=== PATIENT | female | born 1950 | race Native Hawaiian/Other Pacific Islander ===

== ENCOUNTER → 2016-06-14 | Outpatient (CLI) | payer MEDICARE, BC ==
--- NOTE | 2016-06-14 10:44 | CT ---
EXAMINATION TYPE: CT brain wo con DATE OF EXAM: 06/14/2016 9:34 AM COMPARISON: NONE HISTORY: 66-year-old female with memory loss. TECHNIQUE: Examination was done in axial plane without intravenous contrast. Coronal and sagittal reconstructio ns performed. CT DLP: 1036 mGycm Automated exposure control for dose reduction was used. FINDINGS: There is no evidence of acute intracranial hemorrhage, acute ischemic changes, mass, mass-effect, or extra-axial fluid collection. There is no effacement of cerebral sulci or basal subarachnoid cister ns. There is no hydrocephalus. There is no midline shift. Olvera-white matter distinction is preserv ed. Very mild age-related cerebral cortical volume loss. Air-fluid levels within the right greater than left sphenoid sinuses. Mastoid air cells well pneumati zed. Orbits and globes appear intact. IMPRESSION: 1. Very mild age-related cerebral cortical atrophy. No acute intracranial abnormality seen. 2. Air-fluid levels in the sphenoid sinuses; correlate for acute sinusitis.
--- NOTE | 2016-06-14 13:45 | NM ---
EXAMINATION TYPE: NM bone scan whole body DATE OF EXAM: 06/14/2016 1:28 PM COMPARISON: NONE HISTORY: Pain Delayed whole-body scanning was performed following the injection of 27.5 mCi Tc 99m MDP. Images acq uired 3 hours post injection. FINDINGS: Degenerative uptake is seen about the shoulders, sternoclavicular joints, midthoracic spine, lower myla mbar spine, right knee and bilateral ankles. No evidence for intense uptake to suggest fracture or os seous lesion. IMPRESSION: Degenerative uptake as noted.
== END | disposition home or self-care (01) ==
LOC: RADCTMAIN 09:16
PROVIDERS: ATTEND Family Medicine
DX: G31.1 Senile degeneration of brain, not elsewhere classified (principal); R93.7 Abnormal findings on diagnostic imaging of other parts of musculoskeletal system
CPT/HCPCS: 70450; 78306; A9503

== ENCOUNTER → 2016-07-05 | Outpatient (CLI) | payer MEDICARE, BC ==
[2016-07-05 14:10] LABS: EKG EKG PERFORMED
[2016-07-05 14:35] LABS: Basophils # (A) 0.1 k/uL (0-0.2); Basophils % (A) 1 %; CH 27.6; CHCM 31.7; Eosinophils # (A) 0.1 k/uL (0-0.7); Eosinophils % (A) 1 %; HCT 44.7 % (34.0-46.0); HDW 2.34; HGB 14.1 gm/dL (11.4-16.0); Luc # (Auto) 0.12; Luc % (Auto) 2; Lymphocytes # (A) 1.7 k/uL (1.0-4.8); Lymphocytes % (A) 29 %; MCH 27.5 pg (25.0-35.0); MCHC 31.5 g/dL (31.0-37.0); MCV 87.5 fL (80.0-100.0); Mean Platelet Volume 6.5; Monocytes # (A) 0.3 k/uL (0-1.0); Monocytes % (A) 4 %; Neutrophils # (A) 3.6 k/uL (1.3-7.7); Neutrophils % (A) 62 %; RBC 5.11 m/uL (3.80-5.40); RDW 13.8 % (11.5-15.5); WBC 5.8 k/uL (3.8-10.6); WBC (Perox) 6.25
[2016-07-05 14:46] LABS: Anion Gap 9 mmol/L; Carbon Dioxide 32 mmol/L (22-30); Chloride 102 mmol/L (98-107); Potassium 4.5 mmol/L (3.5-5.1); Sodium 143 mmol/L (137-145)
== END | disposition home or self-care (01) ==
LOC: LABPAT 13:59
PROVIDERS: ATTEND Orthopaedic Surgery
DX: Z01.810 Encounter for preprocedural cardiovascular examination (principal)
CPT/HCPCS: 80051; 85025; 93005

== ENCOUNTER 2016-07-10 09:19 | Day surgery (SDC) | payer MEDICARE, BC ==
[2016-07-08 12:46] VITALS: BMI 30.1
--- NOTE | 2016-07-09 14:02 | HP ---
DATE OF ADMISSION: 07/10/2016 Bishop Shetty is a 66-year-old patient seen with progressive left knee pain. After having treatment options discussed, she elected to proceed with left knee arthroscopy. Consent regarding the procedure was obtained. Her past medical history is hypertension, asthma. PAST SURGICAL HISTORY: Herniorrhaphy. Her daily medications are: 1. Advil. 2. Ibuprofen. 3. Losartan. 4. Omeprazole. Allergies are none. SOCIAL HISTORY: Patient denies tobacco use. Physical evaluation of the left knee, her range of motion is 0 to 125 degrees. There is tenderness along the medial joint line. Positive medial Laura's. Ligaments are stable. Hip rotation is without pain. Distal neurovascular exam is intact. Left knee radiographs revealed mild to moderate osteoarthritic changes. An MRI of the left knee revealed an increased signal within the medial meniscus as well as mild osteoarthritis. IMPRESSION: Internal derangement of the left knee with medial meniscal tear. PLAN: Left knee arthroscopy with partial meniscectomy and debridement.
[~2016-07-10 09:19] MED LIST: LACTATED RINGERS 1,000 ML IV SCH; ceFAZolin 2 GM in SODIUM CHLORIDE 0.9% 100 ML IVPB ONE
[2016-07-10] MEDS ORDERED: LIDOCAINE 1% 20 ML VIAL (10MG/ML) FOR IV START INTRADERMA ONE (10:32)
[2016-07-10] MEDS: ONDANSETRON 4 MG/2 ML VIAL IVP ONE ×2 (10:44→16:24)
[2016-07-10] MEDS ORDERED: DEXAMETHASONE SOD PHOS (MDV) 100 MG/10 ML VIAL IV ONE (10:45)
[2016-07-10] MEDS ORDERED: LIDOCAINE 1% INJ 10MG/ML (20 ML MDV) ONE (11:03)
[2016-07-10] MEDS ORDERED: fentaNYL (PF) 50 MCG/ML 2 ML AMP ONE (11:03)
[2016-07-10] MEDS ORDERED: MIDAZOLAM 2 MG/2 ML VIAL ONE (11:03)
[2016-07-10] MEDS ORDERED: PROPOFOL 10 MG/ML 20 ML VIAL IV ONE (11:03)
[2016-07-10] MEDS ORDERED: BUPIVACAIN-EPI 0.25%-1:200,000 30 ML VIAL INTRAARTIC ONE ×2 (11:21→11:42)
[2016-07-10 11:59] VITALS: TEMP 97.1
--- NOTE | 2016-07-10 11:59 | P.OP ---
Date of Procedure: 07/10/16 Preoperative Diagnosis: Internal derangement left knee Postoperative Diagnosis: 1. Tear medial and lateral meniscus left knee 2. Grade 2 chondromalacia medial femoral condyle left knee 3. 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 Reactive synovitis medial and suprapatellar compartments left knee Procedure(s) Performed: 1. Arthroscopic partial medial and lateral meniscectomy left knee 2. Arthroscopic chondroplasty medial femoral condyle left knee 3. Arthroscopic chondroplasty femoral sulcus left knee 4. Arthroscopic partial synovectomy medial and suprapatellar compartments left knee Anesthesia: DANNAA, local Surgeon: Karthik Nance Estimated Blood Loss (ml): 10 Pathology: none sent Condition: stable Disposition: PACU Indications for Procedure: 66-year-old patient seen with progressive left knee pain. After having treatment options discussed, she elected to proceed with left knee arthroscopy. Operative Findings: See description of procedure Description of Procedure: Patient was taken to the operative suite. Patient underwent a general anesthetic by the department of anesthesia. Patient was given preoperative antibiotics. The left lower extremity was placed in a well-padded arthroscopic leg holguin. The left leg was prepped and draped in the normal sterile orthopedic fashion. A lateral parapatellar and suprapatellar incision was made. Trochars were inserted. Arthroscopy was initiated. Suprapatellar pouch revealed thick reactive synovitis. The patellofemoral joint appeared to articulate congruently. There was grade 2-3 chondromalacia changes of the femoral sulcus with some osteochondral tears present. Grade 1 chondral malacia changes of the patella.. The scope was guided into the medial gutter. No loose bodies or plica were identified. The scope was then guided into the medial compartment. A medial parapatellar incision was made. Trocar inserted followed by probe. There was a tear involving the posterior horn of the medial meniscus. There were grade 2 chondral moist changes the medial femoral condyle with some osteochondral tears present. There was reactive synovitis anteriorly. A partial medial meniscectomy was performed on a stable tissue. I performed a chondroplasty of the medial femoral condyle and partial synovectomy. The residual meniscus was probed and found to be stable. The residual osteochondral surface was stable. Scope and probe were then guided into the intercondylar notch. Cruciates were identified, probed and found to be stable. The scope and probe were then guided into lateral compartment. There was some superficial tearing of the mid body lateral meniscus. Grade 1 chondral malacia changes of the tibial plateau. No reactive synovitis, no loose bodies. A partial lateral meniscectomy performed down to stable tissue. The residual meniscus was probed and found to be stable. The scope was in guided back into the suprapatellar compartment. A motorized shaver was introduced into the suprapatellar compartment. I debrided piecemeal fragments of meniscus that I encountered. A chondroplasty of the femoral sulcus was performed down to stable osteochondral tissue. A partial synovectomy was performed. Shaver was removed. Instruments were now removed from the joint. The joint was infiltrated with .25% Marcaine. Steri-Strips were applied to the portal sites. Sterile dressings were applied. The patient was placed into a DEANNE hose. No tourniquet was utilized. The patient was awakened, transferred to a bed and taken to recovery stable satisfactory condition.
[2016-07-10] MEDS: HYDROmorphone 1 MG/ML 1 ML SYRINGE IVP ONE ×2 (12:00→12:12)
[2016-07-10] MEDS ORDERED: KETOROLAC 30 MG/ML 1 ML VIAL IVP ONE (12:12)
[2016-07-10] MEDS: MEPERIDINE 50 MG/ML SYRINGE IVP ONE ×2 (12:18→12:26)
[2016-07-10 16:28] VITALS: BP 145/95; PULSE 99
[2016-07-10 17:21] VITALS: RESP 18
== END 2016-07-10 17:22 | disposition home or self-care (01) ==
LOC: OR 09:19
PROVIDERS: ATTEND Orthopaedic Surgery
DX: S83.242A Other tear of medial meniscus, current injury, left knee, initial encounter (principal); S83.282A Other tear of lateral meniscus, current injury, left knee, initial encounter; X58.XXXA Exposure to other specified factors, initial encounter; M94.262 Chondromalacia, left knee; M65.862 Other synovitis and tenosynovitis, left lower leg; M17.12 Unilateral primary osteoarthritis, left knee; I10 Essential (primary) hypertension; J45.909 Unspecified asthma, uncomplicated; K21.9 Gastro-esophageal reflux disease without esophagitis; Z79.1 Long term (current) use of non-steroidal anti-inflammatories (NSAID); Z79.899 Other long term (current) drug therapy
CPT/HCPCS: 29880; J2250; J2175; J0690; J2405; J2001; J3010; J1885; J1170; J1100; J2704

== ENCOUNTER → 2017-11-27 | Outpatient (CLI) | payer MEDICARE, BC ==
[2017-11-27 10:58] LABS: Blood Urea Nitrogen 9 mg/dL (7-17)
--- NOTE | 2017-11-27 12:26 | CT ---
EXAMINATION TYPE: CT chest wo/w con DATE OF EXAM: 11/27/2017 COMPARISON: 03/13/2015 HISTORY: 67-year-old female Osteoarthritis and Lung nodule TECHNIQUE: Contiguous axial scanning of the chest before and after the administration of 100 ml mL of Isovue 300. Coronal/sagittal reconstructions performed. CT DLP: 954mGycm. Automatic exposure control utilized for a dose reduction. FINDINGS: Heart normal size without pericardial effusion. Aorta normal caliber with conventional arch vessel branching anatomy. No thoracic lymphadenopathy. Tiny 3 mm subpleural pulmonary nodule lateral right mid lung axial image 22 is stable. A stable 3 mm subpleural nodule on the right just below axial image 26, stable. Minimal nodularity along the major fissure, axial image 26 and 28, stable. 3 mm subpleural nodularity posterior right lower lobe axial image 36, stable. 6 mm an adjacent 4 mm pulmonary nodules left midlung axial image 29 and 33, stable. 4 mm anterior left upper lobe pulmonary nodule axial image 26, stable. No new or enlarging pulmonary nodule seen. No consolidation or pleural effusion. Tiny hiatal hernia. Partially visualized mixed solid cystic lesion lateral left kidney probably an A ML as seen in 2015. Bones: Endplate spondylosis within the thoracic spine. Stable sclerotic focus, likely bone island T5 vertebra. IMPRESSION: 1. Scattered pulmonary nodules measuring up to 6 mm unchanged from 2015 compatible with a benign etio logy. No suspicious pulmonary nodules. 2. 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
--- NOTE | 2017-11-27 12:54 | BD ---
EXAMINATION TYPE: Axial Bone Density DATE OF EXAM: 11/27/2017 COMPARISON: NONE CLINICAL HISTORY: 67 YR OLD FEMALE....ICD-10 CODE: M81.0 OSTEOPOROSIS Height: 61 Weight: 155 FRAX RISK QUESTIONS: History of Fracture in Adulthood: YES Secondary Osteoporosis: YES 3. Menopause before 45: YES AT AGE 40 RISK FACTORS HISTORY OF: History of Wrist Fracture: LT WRIST When: AT AGE 57 Family History of Osteoporosis: UNKNOWN Active: YES Diet low in dairy products/other sources of calcium: CHEESE ONLY, SO MAYBE A BIT LOW Postmenopausal woman: AT AGE 40 Take estrogen and/or progesterone medications: IN PAST FOR ABOUT 3-4 YRS MEDICATIONS: Osteoporosis Medications: GENERIC FOSAMAX How Lon+ YRS Additional Medications: BP MEDS, STATINS FOR CHOLESTEROL, REFLUX MEDS, STOMACH MEDS, CENTRUM FOR ADUL TS Additional History: GASTRITIS, HYPERTENSION, ARTHRITIS EXAM MEASUREMENTS: Bone mineral densitometry was performed using the [employer] System. Bone mineral density as measured about the Lumbar spine is: ----- L1-L4(G/cm2): 1.205 T Score Values are as follows: ----- L1: -0.9 ----- L2: 0.5 ----- L3: 0.6 ----- L4: 0.2 ----- L1-L4: 0.2 Bone mineral density NEW TO [facility] Bone mineral density about the R hip (g/cm2): 0.959 Bone mineral density about the L hip (g/cm2): 0.892 T Score values are as follows: -----R Neck: -1.4 -----L Neck: -2.1 -----R Total: -0.4 -----L Total: -0.9 Bone mineral density NEW TO [facility] FRAX%s: THERE IS A 15.1% CHANCE OF A MAJOR OSTEOPOROTIC FX AND A 4.1% FOR HIP FX....PROBABILITY OF FX IN 10 YRS TIME IMPRESSION: No evidence for osteoporosis or osteopenia. NOTE: T-SCORE=SD OF THE YOUNG ADULT MEAN.
== END | disposition home or self-care (01) ==
LOC: RADBDWWP 10:07
PROVIDERS: ATTEND Family Medicine
DX: R91.8 Other nonspecific abnormal finding of lung field (principal); K44.9 Diaphragmatic hernia without obstruction or gangrene; M19.90 Unspecified osteoarthritis, unspecified site
CPT/HCPCS: 82565; 84520; 77080; 71270; 36415; Q9967

== ENCOUNTER → 2018-03-02 | Outpatient (CLI) | payer MEDICARE, BC ==
--- NOTE | 2018-03-05 09:29 | MM ---
Reason for exam: screening (asymptomatic). Last mammogram was performed 2 years and 9 months ago. History: Patient is postmenopausal. Physical Findings: A clinical breast exam by your physician is recommended on an annual basis and results should be correlated with mammographic findings. MG 3D Screening Mammo W/Cad Bilateral CC and MLO view(s) were taken. Prior study comparison: June 06, 2015, mammogram, performed at [facility]. May 16, 2014, mammogram, performed at [facility]. The breast tissue is heterogeneously dense. This may lower the sensitivity of mammography. No significant changes when compared with prior studies. ASSESSMENT: Benign, BI-RAD 2 RECOMMENDATION: Routine screening mammogram of both breasts in 1 year.
== END | disposition home or self-care (01) ==
LOC: RADMAMWWP 10:06
PROVIDERS: ATTEND Family Medicine
DX: Z12.31 Encounter for screening mammogram for malignant neoplasm of breast (principal)
CPT/HCPCS: 77063; 77067

== ENCOUNTER 2018-06-12 21:53 | Emergency (ER) | payer MEDICARE, BC ==
[2018-06-12 22:13] VITALS: RESP 18; TEMP 98.2
[2018-06-12 22:36] LABS: Basophils # (A) 0.1 k/uL (0-0.2); Basophils % (A) 1 %; Eosinophils # (A) 0.2 k/uL (0-0.7); Eosinophils % (A) 2 %; HCT 38.6 % (34.0-46.0); HGB 12.6 gm/dL (11.4-16.0); Lymphocytes # (A) 2.7 k/uL (1.0-4.8); Lymphocytes % (A) 35 %; MCH 27.8 pg (25.0-35.0); MCHC 32.7 g/dL (31.0-37.0); Mean Platelet Volume 7.2; Monocytes # (A) 0.4 k/uL (0-1.0); Monocytes % (A) 6 %; Neutrophils # (A) 4.3 k/uL (1.3-7.7); Neutrophils % (A) 55 %; Platelet Count 369 k/uL (150-450); RBC 4.54 m/uL (3.80-5.40); RDW 13.8 % (11.5-15.5); WBC 7.8 k/uL (3.8-10.6)
[2018-06-12 22:46] LABS: ALT 21 U/L (9-52); AST 20 U/L (14-36); Alkaline Phosphatase 64 U/L (38-126); Anion Gap 7 mmol/L; Blood Urea Nitrogen 18 mg/dL (7-17); Calcium 9.1 mg/dL (8.4-10.2); Carbon Dioxide 29 mmol/L (22-30); Chloride 103 mmol/L (98-107); Glucose 125 mg/dL (74-99); Magnesium 1.9 mg/dL (1.6-2.3); Potassium 3.8 mmol/L (3.5-5.1); Sodium 139 mmol/L (137-145); Total Bilirubin 0.4 mg/dL (0.2-1.3); Total Protein 6.6 g/dL (6.3-8.2)
[2018-06-12 22:48] LABS: Creatine Kinase 35 U/L (30-135)
--- NOTE | 2018-06-12 22:49 | ED ---
Chest Pain HPI - General Chief Complaint: Recheck/Abnormal Lab/Rx Stated Complaint: Pain in upper back, arm, and through fingers Time Seen by Provider: 06/12/18 22:17 Source: patient Mode of arrival: ambulatory Limitations: no limitations - History of Present Illness Initial Comments: This patient is a 68 year old woman who presents with the complaint of Having pain to the posterior aspect of the left shoulder. The patient states that it started 3 days ago now. The pain has been constant, is an aching quality and has been moderately severe. She became concerned because today there was some numbness down the left arm. The patient does note she has some long-standing symptoms like this down the right arm, and she states that her physician Dr. Yanez is going to have her scheduled for an MRI. Patient has not noted anything that worsens or relieves the pain. She has tried taking OTC meds without really much difference. She has not had associated symptoms. Nursing notes mentioned shortness of breath, when I questioned about this she states she has a long-standing (months) phenomenon that when she is lying down trying to go to bed, she sometimes gets a feeling like she cannot take full deep breath but that this does pass, and the symptoms does not have any correlation with the pain she is experiencing for the past 3 days. She is not awakened from sleep by this phenomenon. MD Complaint: chest pain Onset/Timin -: days(s) Onset: during rest Pain Location: other Pain Radiation: LUE Severity: moderate Quality: aching Consistency: constant Improves With: nothing Worsens With: nothing Treatments Prior to Arrival: other (NSAID) - Related Data Home Medications Medication Instructions Recorded Confirmed Acetaminophen [Tylenol Arthritis] 650 mg PO DIRECTED PRN 07/08/16 06/12/18 Alendronate Sodium 70 mg PO TH 07/08/16 06/12/18 Eye Lubricant Combination No.1 1 applic BOTH EYES DIRECTED PRN 07/08/1606/12 [Freshkote] Ibuprofen [Advil] 200 mg PO Q8HR PRN 07/08/16 06/12/18 Losartan/Hydrochlorothiazide 1 tab PO DAILY 07/08/16 06/12/18 [Losartan-Hctz 50-12.5 mg Tab] Fluticasone Nasal [place] [Flonase 1 spray EA NOSTRIL DAILY 06/12/18 06/12/18 Nasal [place]] Omeprazole 20 mg PO DAILY 06/12/18 06/12/18 Previous Rx's Medication Instructions Recorded Naproxen Sodium [Anaprox] 275 mg PO BID #20 tablet 06/13/18 Allergies Allergy/AdvReac Type Severity Reaction Status Date / Time No Known Allergies Allergy Verified 06/12/18 22:45 Review of Systems ROS Statement: Those systems with pertinent positive or pertinent negative responses have been documented in the HPI. ROS Other: All systems not noted in ROS Statement are negative. Constitutional: Denies: fever, chills Respiratory: Denies: cough, dyspnea Cardiovascular: Reports: as per HPI, chest pain. Denies: palpitations, dyspnea on exertion, orthopnea, edema, syncope Gastrointestinal: Denies: abdominal pain, nausea, vomiting, melena, hematochezia Genitourinary: Denies: dysuria, hematuria Musculoskeletal: Denies: back pain Skin: Denies: rash Neurological: Denies: headache, weakness, numbness Hematological/Lymphatic: Denies: easy bleeding EKG Findings - EKG Results: EKG: interpreted by DIONNE RUIZ, sinus rhythm, normal axis, normal QRS, normal ST/ T, no acute changes Past Medical History Past Medical History: Asthma, Eye Disorder, GERD/Reflux, Hypertension, Musculoskeletal Disorder Additional Past Medical History / Comment(s): POSS SL ASTHMA. DRY EYES. LT KNEE INJURY. VARICOSE VEINS. EDEMA LOWER LEGS. History of Any Multi-Drug Resistant Organisms: None Reported Past Surgical History: Hernia Repair Additional Past Surgical History / Comment(s): VARICOSE VEIN SURG. HEMORRHOIDECTOMY. Past Anesthesia/Blood Transfusion Reactions: Family History of Problems w/ Anesthesia, Motion Sickness Additional Past Anesthesia/Blood Transfusion Reaction / Comment(s): SISTER HAS PONV. Past Psychological History: No Psychological Hx Reported Smoking Status: Never smoker Past Alcohol Use History: Rare Past Drug Use History: None Reported - Past Family History Brother(s) Family Medical History: Cancer Mother Family Medical History: Deep Vein Thrombosis (DVT) General Exam Limitations: no limitations General appearance: alert, in no apparent distress Head exam: Present: atraumatic, normocephalic Eye exam: Present: normal appearance. Absent: scleral icterus, conjunctival injection ENT exam: Present: normal oropharynx Neck exam: Present: normal inspection, full ROM Respiratory exam: Present: normal lung sounds bilaterally. Absent: respiratory distress, wheezes, rales, rhonchi, stridor Cardiovascular Exam: Present: regular rate, normal rhythm, normal heart sounds. Absent: systolic murmur, diastolic murmur, rubs, gallop GI/Abdominal exam: Present: soft. Absent: distended, tenderness, guarding, rebound, rigid, mass Extremities exam: Present: normal inspection, normal capillary refill. Absent: pedal edema, calf tenderness Back exam: Present: normal inspection. Absent: CVA tenderness (R), CVA tenderness (L) Neurological exam: Present: alert Skin exam: Present: warm, dry, intact, normal color. Absent: rash Course Vital Signs 06/12/18 06/12/18 06/13/18 22:10 22:28 00:02 Temperature 98.2 F Pulse Rate 95 92 91 Respiratory 18 18 18 Rate Blood Pressure 164/100 125/85 111/87 O2 Sat by Pulse 97 99 [address] [facility] Patient is 68-year-old woman with pain to the thoracic part of the left upper back and some left arm paresthesias. This seems like radicular type symptoms. As a precaution, patient had ECG which is normal and one set of troponins, but given the duration of symptoms one set of enzymes should be adequate. The patient is to follow-up with Dr. Yanez to have that MRI regarding the radicular type symptoms. Also recommend as a precaution, cardiology consultation but this point no evidence of cardiac disease. Discussed appropriate follow-up and return parameters. She has had resolution of the symptoms with analgesics here. Disposition Clinical Impression: Arm paresthesia, left, Back pain Disposition: HOME SELF-CARE Condition: Good Instructions: Paresthesia (ED) Prescriptions: Naproxen Sodium [Anaprox] 275 mg PO BID #20 tablet Is patient prescribed a controlled substance at d/c from ED?: No Referrals: Jt Yanez DO [Primary Care Provider] - 1-2 days
[2018-06-12 22:51] LABS: D-Dimer 0.31 mg/L FEU (<0.60); Partial Thromboplastin Time 24.1 sec (22.0-30.0); Prothrombin Time 10.9 sec (9.0-12.0)
--- NOTE | 2018-06-12 22:58 | XR ---
EXAMINATION TYPE: XR chest 2V DATE OF EXAM: 06/12/2018 COMPARISON: NONE HISTORY: Back pain and chest pain TECHNIQUE: Frontal and lateral views of the chest are obtained. FINDINGS: There is no heart failure nor confluent pneumonic infiltrate. Heart size is normal. There is no pleural effusion. There are chest leads. Bony thorax appears intact. IMPRESSION: No active cardiopulmonary disease. Normal heart.
[2018-06-12 23:02] LABS: Creatine Kinase MB 0.9 ng/mL (0.0-2.4); Troponin I <0.012 ng/mL (0.000-0.034)
[2018-06-12] MEDS ORDERED: MORPHINE SULFATE 4 MG/ML SYRINGE IV STA (23:21)
[2018-06-12] MEDS ORDERED: KETOROLAC 30 MG/ML 1 ML VIAL IVP STA (23:21)
[2018-06-13 00:03] VITALS: BP 111/87; PULSE 91
== END 2018-06-13 01:06 | disposition home or self-care (01) ==
LOC: EC 21:53
DX: M54.9 Dorsalgia, unspecified (principal); R20.2 Paresthesia of skin; R07.9 Chest pain, unspecified; M25.512 Pain in left shoulder; J45.909 Unspecified asthma, uncomplicated; K21.9 Gastro-esophageal reflux disease without esophagitis; I10 Essential (primary) hypertension; Z79.51 Long term (current) use of inhaled steroids; Z79.899 Other long term (current) drug therapy
CPT/HCPCS: 36415; 93005; 85379; 80053; 82550; 82553; 83735; 84484; 85025; 85610; 85730; 71046; 99285; 96374; 96375; J2270; J1885

== ENCOUNTER → 2018-09-18 | Outpatient (CLI) | payer MEDICARE, BC ==
[2018-09-18 14:58] LABS: Basophils # (A) 0.1 k/uL (0-0.2); Basophils % (A) 1 %; Eosinophils # (A) 0.2 k/uL (0-0.7); Eosinophils % (A) 3 %; HCT 41.9 % (34.0-46.0); HGB 12.9 gm/dL (11.4-16.0); Hypochromasia Slight; Lymphocytes # (A) 2.2 k/uL (1.0-4.8); Lymphocytes % (A) 38 %; MCH 26.2 pg (25.0-35.0); MCHC 30.8 g/dL (31.0-37.0); MCV 85.1 fL (80.0-100.0); Mean Platelet Volume 7.1; Monocytes # (A) 0.3 k/uL (0-1.0); Monocytes % (A) 5 %; Neutrophils % (A) 51 %; Platelet Count 358 k/uL (150-450); RBC 4.92 m/uL (3.80-5.40); RDW 13.7 % (11.5-15.5); WBC 5.8 k/uL (3.8-10.6)
[2018-09-18 15:00] LABS: Potassium 4.6 mmol/L (3.5-5.1)
== END | disposition home or self-care (01) ==
LOC: LABPAT 12:36
PROVIDERS: ATTEND Orthopaedic Surgery
DX: Z01.812 Encounter for preprocedural laboratory examination (principal); M75.41 Impingement syndrome of right shoulder
CPT/HCPCS: 36415; 80051; 85025

== ENCOUNTER 2018-09-28 11:04 | Day surgery (SDC) | payer MEDICARE, BC ==
[2018-09-23 10:16] VITALS: BMI 28.3
--- NOTE | 2018-09-27 17:22 | HP ---
HISTORY AND PHYSICAL REASON FOR ADMISSION: Surgery scheduled for 09/28/2018 HISTORY OF PRESENT ILLNESS: Bishop Shetty is a 68-year-old patient seen with progressive right shoulder pain. We discussed options. She elected to proceed with arthroscopy. Consent was obtained her. PAST MEDICAL HISTORY: Hypertension, gastroesophageal reflux disease, asthma. PAST SURGICAL HISTORY: Herniorrhaphy, knee arthroscopy. MEDICATIONS: Losartan, omeprazole. ALLERGIES: None. SOCIAL HISTORY: She denies tobacco use. PHYSICAL EXAMINATION: Evaluation of the right shoulder flexion 170 degrees, abduction 120 degrees, external rotation is 30 degrees with weakness. There is tenderness along the anterolateral acromion and rotator cuff. Impingement positive at 90. Drop-arm sign is positive. Her distal neurovascular exam is intact. RADIOGRAPHS: Right shoulder radiographs revealed a type 2 anterior acromion, severe acromioclavicular joint osteoarthritis. Right shoulder MRI revealed a partial rotator cuff tear, labral tear and biceps tendinitis. IMPRESSION: 1. Right shoulder impingement with partial rotator cuff tear. 2. Right shoulder acromioclavicular joint osteoarthritis. 3. Hypertension. 4. Gastroesophageal reflux disease. 5. Asthma. PLAN: Right shoulder arthroscopy with subacromial decompression, possible arthroscopic rotator cuff repair, possible Tessa procedure and debridement. Surgery scheduled for 09/28/2018. MMODL / IJN: [id number] /
[~2018-09-28 11:04] MED LIST changes: +DEXAMETHASONE SOD PHOSPHATE 10 MG/ML 1 ML VIAL IV ONE; +HYDROmorphone 0.5 MG/0.5 ML SYRINGE IVP PRN; +LIDOCAINE 1% 20 ML VIAL (10MG/ML) FOR IV START INTRADERMA PRN; +ONDANSETRON 4 MG/2 ML VIAL IVP ONE; -ceFAZolin 2 GM in SODIUM CHLORIDE 0.9% 100 ML IVPB ONE; +ceFAZolin IN SWFI 2 GM/20 ML SYRINGE IVP ONE
[2018-09-28] MEDS ORDERED: fentaNYL (PF) 50 MCG/ML 2 ML AMP IV ONE (11:38)
[2018-09-28] MEDS ORDERED: MIDAZOLAM (PF) 2 MG/2 ML VIAL IV ONE (11:38)
--- NOTE | 2018-09-28 12:48 | P.ONQ ---
Anesthesiology Proc Note - PNB - Peripheral Nerve Block Performed Right Interscalene Single Time Out Performed: Yes Procedure Start Time: 11:39 Indication: Acute Post-Operative Pain Specifically requested for management of pain by DrSu: Karthik Nance Sedation Type: Sedate with meaningful contact maintained Preparation: Sterile Prep Position: Supine Catheter: None Needle Types: Other (see comment) (pajunk) Needle Size: 50mm (2") Needle Gauge: 21 Technique: Ultrasound Injectate: 0.5% Ropivacaine (see comment for volume) (20cc) Blood Aspirated: No Pain Paresthesia on Injection Noted: No Resistance on Injection: Normal Events: Uneventful and Well Tolerated
[2018-09-28] MEDS ORDERED: ROPIVACAINE 5 MG/ML 30 ML VIAL ONE (13:02)
[2018-09-28] MEDS ORDERED: MIDAZOLAM 2 MG/2 ML VIAL ONE (13:02)
[2018-09-28] MEDS ORDERED: fentaNYL (PF) 50 MCG/ML 2 ML AMP ONE (13:02)
[2018-09-28] MEDS ORDERED: LIDOCAINE 1% INJ 10MG/ML (20 ML MDV) ONE (13:02)
[2018-09-28] MEDS ORDERED: SUCCINYLCHOLINE CHLORIDE VIAL 200 MG/10 ML VIAL IV ONE (13:02)
[2018-09-28] MEDS ORDERED: PROPOFOL 10 MG/ML 20 ML VIAL IV ONE (13:02)
--- NOTE | 2018-09-28 14:39 | P.OP ---
Date of Procedure: 09/28/18 Preoperative Diagnosis: Right shoulder impingement Postoperative Diagnosis: 1. Right shoulder impingement 2. Right shoulder acromioclavicular joint osteoarthritis 3. Right shoulder partial rotator cuff tear 4. Right shoulder partial biceps tear 5. Right shoulder grade 3 chondromalacia humeral head Procedure(s) Performed: 1. Right shoulder arthroscopic subacromial decompression 2. Right shoulder arthroscopic Tessa procedure 3. Right shoulder arthroscopic debridement partial rotator cuff tear 4. Right shoulder arthroscopic biceps tenotomy 5. Right shoulder chondroplasty humeral head Anesthesia: GETA, regional (Interscalene block) Surgeon: Karthik Nance Estimated Blood Loss (ml): 10 Pathology: none sent Condition: stable Disposition: PACU Indications for Procedure: 68-year-old patient seen with progressive right shoulder pain. After having treatment options discussed, she elected to proceed with arthroscopy. Operative Findings: see description of procedure Description of Procedure: Patient underwent an interscalene block by department of anesthesia. The patient was then taken to the operative suite. The patient underwent a general anesthetic by the department of anesthesia. The patient was placed into a lateral position and secured. There was appropriate padding of the bony prominence. Right shoulder was then prepped and draped in normal sterile orthopedic fashion. We placed the extremity in 10 pounds of longitudinal traction. A posterior incision was now made for a posterior working portal site. The trocar and cannula were inserted into the glenohumeral joint. Arthroscopy was initiated. Spinal needle was now inserted anteriorly, to ascertain the anterior working portal site. An incision was now made in that area, a trocar was inserted followed by a probe. There was partial tearing long head biceps tendon. There was grade 3 chondromalacia of the humeral head. There was a superficial tear of the superior labrum. I performed an arthroscopic biceps tenotomy. I debrided the superficial labral tear getting down to stable labral tissue. I performed a chondroplasty of the humeral head getting down to stable osteochondral tissue. The residual osteochondral surface was stable. The residual labrum was stable. Instruments removed from glenohumeral joint. Utilizing the posterior working portal site, the trocar and cannula were inserted into the subacromial space. Arthroscopy initiated. I made an incision 2 fingerbreadths lateral to the acromion. I introduced my trocar followed by my ArthroCare ablator. I now began ablating thick subacromial bursal tissue, which exposed the undersurface of the anterior acromion. There was diminished subacromial space. There was a very prominent anterior acromion. A motorized bur was introduced and a subacromial decompression was performed. I also excised some osteophytes off the inferior aspect of the distal clavicle. The AC joint was visualized and noted to be fairly arthritic. The motorized bur was introduced in the anterior portal site and a Tessa procedure was performed without difficulty, decompressing the AC joint nicely. I turned my attention to the rotator cuff. There was some superficial tearing of the distal supraspinatus tendon. I debrided that utilizing motorize shaver. I got down to stable tendon tissue. The area was thoroughly probed and was no evidence for any perforation or tear. I injected 1 mL Renue intra-articular. Instruments now removed from the portal sites. All portal sites were approximated with nylon suture. Sterile dressings were applied followed by a shoulder sling. The p atient was awakened, transferred to a bed, and taken to recovery in stable condition.
[2018-09-28 14:48] VITALS: TEMP 97
[2018-09-28 16:50] VITALS: RESP 18
[2018-09-28 18:14] VITALS: BP 142/88; PULSE 92
== END 2018-09-28 18:16 | disposition home or self-care (01) ==
LOC: OR 11:04
PROVIDERS: ATTEND Orthopaedic Surgery
DX: M75.111 Incomplete rotator cuff tear or rupture of right shoulder, not specified as traumatic (principal); M19.011 Primary osteoarthritis, right shoulder; M75.41 Impingement syndrome of right shoulder; S46.111A Strain of muscle, fascia and tendon of long head of biceps, right arm, initial encounter; S43.431A Superior glenoid labrum lesion of right shoulder, initial encounter; X58.XXXA Exposure to other specified factors, initial encounter; M94.211 Chondromalacia, right shoulder; M25.711 Osteophyte, right shoulder; I10 Essential (primary) hypertension; K21.9 Gastro-esophageal reflux disease without esophagitis; J45.909 Unspecified asthma, uncomplicated; H04.129 Dry eye syndrome of unspecified lacrimal gland; Z79.1 Long term (current) use of non-steroidal anti-inflammatories (NSAID); Z79.899 Other long term (current) drug therapy
CPT/HCPCS: 29826; 29827; 29824; 64415; C1765; J2250 ×2; J0330; J1100; J2405; J2001; J3010; J2795; J2704; J0690

== ENCOUNTER → 2019-11-03 | Outpatient (CLI) | payer MEDICARE, BC ==
--- NOTE | 2019-11-04 10:14 | MM ---
Reason for exam: screening (asymptomatic). Last mammogram was performed 1 year and 8 months ago. History: Patient is postmenopausal. Physical Findings: A clinical breast exam by your physician is recommended on an annual basis and results should be correlated with mammographic findings. MG 3D Screening Mammo W/Cad Bilateral CC and MLO view(s) were taken. Prior study comparison: March 02, 2018, bilateral MG 3d screening mammo w/cad. June 06, 2015, mammogram, performed at [facility]. The breast tissue is heterogeneously dense. This may lower the sensitivity of mammography. No suspicious abnormality. No significant changes when compared with prior studies. ASSESSMENT: Negative, BI-RAD 1 RECOMMENDATION: Routine screening mammogram of both breasts in 1 year.
== END | disposition home or self-care (01) ==
LOC: RADMAMWWP 12:04
PROVIDERS: ATTEND Family Medicine
DX: Z12.31 Encounter for screening mammogram for malignant neoplasm of breast (principal)
CPT/HCPCS: 77063; 77067

== ENCOUNTER → 2020-02-04 | Outpatient (CLI) | payer MEDICARE, BC ==
[2020-02-04 14:23] LABS: African American GFR (CKD) >90 (>60 ml/min/1.73 sqM); Blood Urea Nitrogen 14 mg/dL (7-17); Non-African American GFR(CKD) >90 (>60 ml/min/1.73 sqM)
--- NOTE | 2020-02-04 17:32 | ECHOF ---
Referral Reason:[id number] Pulmonary Nodule, I10 HTN MEASUREMENTS -------- HEIGHT: 162.6 cm WEIGHT: 74.4 kg BP: RVIDd: 3.5 cm (< 3.3) IVSd: 1.3 cm (0.6 - 1.1) LVIDd: 3.8 cm (3.9 - 5.3) LVPWd: 1.4 cm (0.6 - 1.1) IVSs: 1.7 cm LVIDs: 2.8 cm LVPWs: 1.9 cm LAESV Index (A-L): 25.01 ml/m Ao Diam: 2.8 cm (2.0 - 3.7) AV Cusp: 1.7 cm (1.5 - 2.6) MV EXCURSION: 14.230 mm (> 18.000) MV EF SLOPE: 43 mm/s (70 - 150) EPSS: 0.9 cm MV E Yaakov: 0.73 m/s MV DecT: 176 ms MV A Yaakov: 1.11 m/s MV E/A Ratio: 0.66 RAP: 5.00 mmHg RVSP: 34.97 mmHg FINDINGS -------- This was a technically adequate study. The left ventricular size is normal. There is mild concentric left ventricular hypertrophy. Overa ll left ventricular systolic function is normal with, an EF between 55 - 60 %. The diastolic fillin g pattern is normal for the age of the patient 12.09. The right ventricle is mildly enlarged. Normal LA size by volume 22+/-6 ml/m2. The right atrial size is normal. Interatrial and interventricular septum intact. The aortic valve is trileaflet and appears structurally normal. There is mild aortic valve sclerosi s. There is no evidence of aortic regurgitation. There is no evidence of aortic stenosis. The mitral valve leaflets are mildly thickened. Mild mitral annular calcification present. Mild m itral regurgitation is present. Mild tricuspid regurgitation present. There is borderline pulmonary hypertension. The right ventr icular systolic pressure, as measured by Doppler, is 34.97mmHg. There is no pulmonic regurgitation present. The aortic root size is normal. Normal inferior vena cava with normal inspiratory collapse consistent with estimated right atrial pre ssure of 5 mmHg. There is no pericardial effusion. CONCLUSIONS -------- 1. The left ventricular size is normal. 2. There is mild concentric left ventricular hypertrophy. 3. Overall left ventricular systolic function is normal with, an EF between 55 - 60 %. 4. The diastolic filling pattern is normal for the age of the patient 12.09 5. The right ventricle is mildly enlarged. 6. There is mild aortic valve sclerosis. 7. The mitral valve leaflets are mildly thickened. 8. Mild mitral annular calcification present. 9. Mild mitral regurgitation is present. 10. Mild tricuspid regurgitation present. 11. There is borderline pulmonary hypertension. 12. The aortic root size is normal. HEALTH AND PHYSICAL EDUCATION TEACHER: Tasha Crisostomo RDCS
--- NOTE | 2020-02-07 20:24 | CT ---
EXAMINATION TYPE: CT chest w con DATE OF EXAM: 02/04/2020 COMPARISON: CT chest 11/27/2017, CT chest abdomen pelvis 03/13/2015. HISTORY: Pulmonary nodule and hypertension. CT DLP: 190.4 mGycm Automated exposure control for dose reduction was used. CONTRAST: CT scan of the chest is performed with IV Contrast, patient injected with 100ml mL of Isovue 300. FINDINGS: LUNGS: Lungs are grossly clear. There are redemonstrated scattered pulmonary nodules, the largest betty sures up to 7 mm in the left lower lobe (4:28). Largest nodule in the left upper lobe measures 4 mm ( 4:25). Largest nodule within the right lower lobe measures 4 mm (4:29). Additional nodules measure be tween 2 and 3 mm bilaterally. All nodules are grossly stable versus 11/27/2017 comparison. No new or s ignificantly enlarging nodules are seen. No concerning parenchymal mass or nodule identified. No pleu ral effusion. No pneumothorax. The tracheobronchial tree is patent. MEDIASTINUM/SOFT TISSUES: No axillary, hilar, or mediastinal lymphadenopathy greater than 1 cm. Cardi ac size is normal. No pericardial effusion. No thoracic aortic aneurysm. The main pulmonary arterial trunk measures up to 3.2 cm, previously 2.8 cm on 11/19/2017 comparison. UPPER ABDOMEN: No adrenal nodule. 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 Left renal cyst. OSSEOUS: Degenerative changes of the spine. Redemonstrated T5 vertebral body benign bone island. IMPRESSION: 1. Scattered pulmonary nodules measuring up to 7 mm are unchanged versus 2014 comparison and most lik fracisco benign. 2. Main pulmonary arterial trunk increased in size measuring up to 3.2 cm. Findings may represent pul monary arterial hypertension.
== END | disposition home or self-care (01) ==
LOC: RADCTMAIN 13:38
PROVIDERS: ATTEND Family Medicine
DX: R91.8 Other nonspecific abnormal finding of lung field (principal); I11.9 Hypertensive heart disease without heart failure; I08.1 Rheumatic disorders of both mitral and tricuspid valves
CPT/HCPCS: 93306; 82565; 84520; 71260; 36415; Q9967

== ENCOUNTER → 2020-11-22 | Outpatient (CLI) | payer MEDICARE, BC ==
--- NOTE | 2020-11-24 11:46 | MM ---
Reason for exam: screening (asymptomatic). Last mammogram was performed 1 year and 1 month ago. History: Patient is postmenopausal. Physical Findings: A clinical breast exam by your physician is recommended on an annual basis and results should be correlated with mammographic findings. MG 3D Screening Mammo W/Cad Bilateral CC and MLO view(s) were taken. Prior study comparison: November 03, 2019, bilateral MG 3d screening mammo w/cad. March 02, 2018, bilateral MG 3d screening mammo w/cad. The breast tissue is heterogeneously dense. This may lower the sensitivity of mammography. No significant changes when compared with prior studies. ASSESSMENT: Negative, BI-RAD 1 RECOMMENDATION: Routine screening mammogram of both breasts in 1 year. Patient should continue monthly self breast exams. A negative report should not preclude additional follow up of suspicious palpable abnormalities.
== END | disposition home or self-care (01) ==
LOC: RADMAMWWP 14:27
PROVIDERS: ATTEND Family Medicine
DX: Z12.31 Encounter for screening mammogram for malignant neoplasm of breast (principal); Z78.0 Asymptomatic menopausal state
CPT/HCPCS: 77063; 77067

== ENCOUNTER → 2021-02-02 | Outpatient (CLI) | payer MEDICARE, BC ==
--- NOTE | 2021-02-02 13:58 | CT ---
EXAMINATION TYPE: CT chest abdomen wo con DATE OF EXAM: 02/02/2021 COMPARISON: 02/04/2020 HISTORY: pulmonary nodule, aneurysm CT DLP: 492.2mGycm Unenhanced CT of the Chest, Abdomen Unenhanced CT of the chest ,abdomen is performed. The lack of intravenous contrast limits evaluation of the solid and hollow viscera. Oral contrast: No CT Chest: LUNGS: The lungs are clear and free of infiltrate or atelectasis. Again noted are scattered pulmonary nodules unchanged in overall number and size. Largest nodule is seen on the right middle lobe measur es 7 mm image 33. 4.5 mm pulmonary nodule mid lung zone on the left image 36. No pleural effusion or CT evidence of interstitial lung disease. MEDIASTINUM: Thoracic aorta is of normal caliber. The heart is not enlarged. No evidence for media stinal mass or adenopathy. HILAR STRUCTURES: No evidence for mass. No hilar adenopathy is appreciated. OTHER: No significant abnormality. CONTRAST CT ABDOMEN LIVER/GB: No calcified gallstones. No space occupying hepatic lesion. Biliary tree is of normal ca liber. PANCREAS: No inflammation. No distinct mass. SPLEEN: No splenic enlargement. No lesion seen. ADRENALS: No nodule. No thickening. KIDNEYS/BLADDER: No hydronephrosis. No nephrolithiasis. Hypoattenuating lesion left kidney likely r eflects a cyst. BOWEL: Normal appendix. Normal bowel caliber. No inflammation. LYMPH NODES: No greater than 1cm abdominal or pelvic lymph nodes are appreciated. AORTA: No significant abnormality. OSSEOUS STRUCTURES: No significant abnormality is seen. OTHER: No significant additional abnormality is seen. IMPRESSION: 1. Stable scattered pulmonary nodules. 2. Probable left renal cyst.
== END | disposition home or self-care (01) ==
LOC: RADCTMAIN 13:14
PROVIDERS: ATTEND Family Medicine
DX: R91.8 Other nonspecific abnormal finding of lung field (principal)
CPT/HCPCS: 71250; 74150

== ENCOUNTER → 2022-03-08 | Outpatient (CLI) | payer MEDICARE, BC ==
--- NOTE | 2022-03-08 14:15 | US ---
EXAMINATION TYPE: US carotid duplex BILAT DATE OF EXAM: 03/08/2022 COMPARISON: NONE CLINICAL HISTORY: R55 SYNCOPE. Headaches, dizziness. Syncope per order. TECHNIQUE: Carotid duplex ultrasound examination. Indirect Doppler criteria was utilized. FINDINGS: EXAM MEASUREMENTS: RIGHT: Peak Systolic Velocity (PSV) cm/sec ----- Right CCA: 64.2 ----- Right ICA: 108.2 ----- Right ECA: 56.4 ICA/CCA ratio: 1.7 RIGHT: End Diastole cm/sec ----- Right CCA: 18.8 ----- Right ICA: 34.4 ----- Right ECA: 14.5 LEFT: Peak Systolic Velocity (PSV) cm/sec ----- Left CCA: 51.3 ----- Left ICA: 60.2 ----- Left ECA: 60.2 ICA/CCA ratio: 1.2 LEFT: End Diastole cm/sec ----- Left CCA: 15.1 ----- Left ICA: 22.5 ----- Left ECA: 13.2 VERTEBRALS (direction of flow): Right Vertebral: Antegrade Left Vertebral: Antegrade Rhythm: Normal GAMING CAGE WORKER NOTES: No elevated velocities at this time. Right distal ICA was not fully evaluated, enrrique ears tortuous and dives quickly posterior. Limited due to high bifurcations. IMPRESSION: Based on color and zaman scale imaging of the carotids and carotid bifurcations, Doppler waveform anal ysis and peak systolic velocities and ratios,, there is no significant common or internal carotid art jill stenosis bilaterally. Grayscale and color imaging reveals no plaque formation . Essentially a no rmal exam. Criteria for Assigning % of Stenosis / Diameter reduction (Estimation based on the indirect measurements of the internal carotid artery velocities (ICA PSV). 1. Normal (no stenosis)=ICA PSV < 125 cm/s: ratio < 2.0: ICA EDV<40 cm/s. 2. Less than 50% stenosis=ICA PSV < 125 cm/s: ratio < 2.0: ICA EDV<40 cm/s. 3. 50 to 69% stenosis=ICA PSV of 125 to 230 cm/s: ration 2.0 ? 4.0: ICA EDV 40-100 cm/s. 4. Greater than 70% stenosis to near occlusion= ICA PSV > 230 cm/s: ratio > 4.0: ICA EDV > 100 cm/s. 5. Near occlusion= ICA PSV velocities may be low or undetectable: variable ratio and ICA EDV. 6. Total occlusion=unable to detect flow.
== END | disposition home or self-care (01) ==
LOC: RADUSWWP 12:56
PROVIDERS: ATTEND Family Medicine
DX: R55 Syncope and collapse (principal)
CPT/HCPCS: 93880

== ENCOUNTER → 2023-10-29 | Outpatient (CLI) | payer MEDICARE, BC ==
--- NOTE | 2023-10-29 14:21 | MM ---
Reason for Exam: Follow-up at short interval from prior study. Last mammogram was performed 1 year(s) and 1 month(s) ago. Patient History: Menarche at age 13. First Full-Term at age 24. Postmenopausal. Estrogen and Progesterone for 18 years from age 40 until age 58. Risk Values: Didi 5 year model risk: 1.8%. NCI Lifetime model risk: 3.9%. Tissue Density: The breasts are heterogeneously dense, which may obscure small masses. Findings: Analyzed By CAD. The pattern is symmetrical. No significant interval changes are evident. No suspicious groups of microcalcifications, spiculated or lobular masses, architectural distortion or other secondary signs of malignancy are mammographically apparent. Overall Assessment: Benign, BI-RAD 2 Management: Screening Mammogram of both breasts in 1 year. A negative mammogram report should not preclude additional follow up of suspicious palpable abnormalities. Patient should continue monthly self breast exam. A clinical breast exam by your physician is recommended on an annual basis and results should be correlated with mammographic findings. Note on Didi scores and lifetime risk: 1. A Didi score greater than 3% is considered moderate risk. If this is the case, consider specialist referral to assess eligibility for a risk reducing agent. 2. If overall lifetime risk for the development of breast cancer is 20% or higher, the patient may qualify for future screening with alternating mammogram and breast MRI. Electronically signed and approved by: Jose Saeed D.O. Radiologis
== END | disposition home or self-care (01) ==
LOC: RADMAMWWP 13:49
PROVIDERS: ATTEND Family Medicine
DX: R92.333 Mammographic heterogeneous density, bilateral breasts (principal); Z78.0 Asymptomatic menopausal state
CPT/HCPCS: 77066; G0279; 77062

== ENCOUNTER → 2023-10-29 | Outpatient (CLI) | payer MEDICARE, BC ==
--- NOTE | 2023-10-29 20:55 | CT ---
EXAMINATION TYPE: High-resolution CT chest without contrast DATE OF EXAM: 10/29/2023 COMPARISON: 02/02/2021 HISTORY: 73-year-old female R91.8, abnormal finding of lung field, SOB TECHNIQUE: High-resolution thin cut CT of the chest utilizing 1 mm slight thickness in [address] cm gap or HR CT protocol. No IV contrast was administered. Both prone and supine imaging is performed. CT DLP: 761.4mGycm. Automatic exposure control utilized for a dose reduction. FINDINGS: The heart is upper limits of normal in size. Mild LAD coronary artery calcifications are present. Minimal atherosclerotic arch calcifications with conventional arch vessel branching anatomy. Ectatic descending thoracic aorta 3.1 cm. Tortuous descending thoracic aorta with ectasia distally to 2.7 cm. Borderline caliber to the main right and left pulmonary arteries measuring up to 2.6 cm may reflect u nderlying pulmonary hypertension. No thoracic lymphadenopathy identified. There is strandy scarring or atelectasis in the lower lungs. Some groundglass change in the dependent lung bases improves on prone positioning. No honeycombing, dominant groundglass opacities, centrilob ular nodularity, or bronchiectasis. Minimal emphysematous change noted. Unchanged small areas of pleu ral-parenchymal scarring posterior bilateral upper lobes. A few scattered 7 mm and smaller pulmonary nodules on the left remain unchanged compared to 202 comp atible with a benign etiology. 3 mm subpleural pulmonary nodule lateral right midlung unchanged. Visualized upper abdomen shows an exophytic cyst from the upper pole left kidney measuring 2.7 cm. Endplate spondylosis throughout the thoracic spine. IMPRESSION: 1. No specific findings of interstitial pneumonitis on HRCT. There is some mild strandy scarring at t he lung bases. Groundglass improves on prone positioning suggesting areas of transient atelectasis. 2. A few scattered 7 mm and smaller pulmonary nodules remain unchanged back to 2020 suggesting a callum gn etiology.
== END | disposition home or self-care (01) ==
LOC: RADCTMAIN 14:20
PROVIDERS: ATTEND Internal Medicine Pulmonary Disease
DX: R91.8 Other nonspecific abnormal finding of lung field (principal)
CPT/HCPCS: 71250